=== PATIENT | female | born 1980 | race African-American/Black ===

== ENCOUNTER 2017-06-29 10:10 | Emergency (ER) | payer SELFPAY ==
[~2017-06-29] VITALS: Ht 165.1 cm; Wt 67.0 kg
[~2017-06-29 10:10] MED LIST: METH750T2 PO; TRAM50 PO
[2017-06-29 10:29] VITALS: BP 120/77; PULSE 99; RESP 17; TEMP 99.1; O2SAT 100
--- NOTE | 2017-06-29 12:13 | RADRPT ---
EXAM DATE/TIME: 06/29/2017 11:51 [place] COMPARISON: No previous studies available for comparison. INDICATIONS : Left leg swelling. MEDICAL HISTORY : Left leg swelling. Tobacco use. SURGICAL HISTORY : None. ENCOUNTER: Initial ACUITY: 1 day PAIN SCORE: 2/10 LOCATION: Left leg. TECHNIQUE: Venous ultrasound of the leg was performed from the inguinal ligament to the proximal calf. Real-hafsa e, color Doppler and spectral tracing, compression and augmentation techniques were used. FINDINGS: There is normal compressibility of the deep venous system from the inguinal region to the proximal ca lf. No echogenic clot is seen in the lumen of the common femoral, femoral, popliteal, and posterior tibial veins. There is a normal response of the venous system to proximal and distal augmentation an d respiration. CONCLUSION: No evidence of DVT. Brendan Benítez MD on June 29, 2017 at 12:11 Board Certified Radiologist. This report was verified electronically.
--- NOTE | 2017-06-29 12:53 | PD ---
HPI Chief Complaint: Edema Time Seen by Provider: 12:53 Travel History International Travel<30 days: No Contact w/Intl Traveler<30days: No Traveled to known affect area: No History of Present Illness HPI 37-year-old F [place] female presents emergency department with notable swelling in the left lower leg which she felt was somewhat tender. She is concerned about possible DVT. She denies fever, chills, shortness of breath, or chest pain. She does work nights and she worked last night 11-6. He works as a [employer] where she is on her feet most of the evening. Patient has no history of blood clots in the past. Pain is minimal at 4 out of 10. She has no known drug allergies. PFSH Past Medical History Diminished Hearing: No ?: Not LMP: 06/2017 Social History Alcohol Use: No Tobacco Use: Yes (04/16 PPD) Substance Use: No Allergies-Medications (Allergen,Severity, Reaction): Coded Allergies: No Known Allergies (Verified Adverse Reaction, Unknown, 06/29/17) Reported Meds & Prescriptions Reported Meds & Active Scripts Active Robaxin (Methocarbamol) 750 Mg Tab 750 Mg PO Q8 PRN Ultram (Tramadol HCl) 50 Mg Tab 50 Mg PO Q6H PRN FOR PAIN Review of Systems Except as stated in HPI: all other systems reviewed are Neg General / Constitutional: No: Fever Eyes: No: Visual changes HENT: No: Headaches Cardiovascular: No: Chest Pain or Discomfort Respiratory: No: Shortness of Breath Gastrointestinal: No: Abdominal Pain Genitourinary: No: Dysuria Musculoskeletal: Positive: Edema (Mild left-sided lower extremity), Pain (4 out of 10 left lower extremity), No: Myalgias, Arthralgias, Limited ROM Skin: No Rash Neurologic: No: Weakness Psychiatric: No: Depression Endocrine: No: Polydipsia Hematologic/Lymphatic: No: Easy Bruising Physical Exam Narrative GENERAL: Patient appears in no acute distress per SKIN: Warm and dry. Normal color. Normal turgor. No erythema. HEAD: Atraumatic. Normocephalic. EYES: Pupils equal and round. No scleral icterus. No injection or drainage. ENT: No nasal bleeding or discharge. Mucous membranes pink and moist. Pharynx is clear. Airways patent. NECK: Trachea midline. Supple nontender. CARDIOVASCULAR: Regular rate and rhythm. No murmurs gallops or rubs. RESPIRATORY: No accessory muscle use. Clear to auscultation. Breath sounds equal bilaterally. GASTROINTESTINAL: Abdomen soft, non-tender, nondistended. Hepatic and splenic margins not palpable. MUSCULOSKELETAL: Extremities without clubbing, cyanosis, or 1+ at best nonpitting edema in the left lower calf. No obvious deformities. Negative Homans sign. No significant increased pain with palpation. NEUROLOGICAL: Awake and alert. No obvious cranial nerve deficits. Motor grossly within normal limits. Five out of 5 muscle strength in the arms and legs. Normal speech. PSYCHIATRIC: Appropriate mood and affect; insight and judgment normal. Data Data Last Documented VS Vital Signs Date Time Temp Pulse Resp B/P (MAP) Pulse Ox O2 Delivery O2 Flow Rate FiO2 06/29/17 10:29 99.1 99 17 120/77 (91) 100 Orders Orders Us Leg Venous Doppler (06/29/17 ) [facility] Medical Decision Making Medical Screen Exam Complete: Yes Emergency Medical Condition: Yes Differential Diagnosis Left lower leg pain. Left lower leg swelling. Possible DVT. Narrative Course Ultrasound ordered in triage of the left lower extremity shows no signs of DVT. Further workup was not deemed necessary at this time. Recommend patient watch her salt intake, and perhaps wears supportive stockings while working. Patient can return if symptoms worsen as needed. Diagnosis Primary Impression: Pain in left lower leg Referrals: Primary Care Physician Patient Instructions: 2 Gram Sodium Diet (DC), General Instructions Additional Instructions: Ultrasound ordered in triage of the left lower extremity shows no signs of DVT. Further workup was not deemed necessary at this time. Recommend patient watch her salt intake, and perhaps wears supportive stockings while working. Patient can return if symptoms worsen as needed. Med/Other Pt SpecificInfo: No Meds Exist/No RX given Disposition: 01 DISCHARGE HOME Condition: Stable Robert Mendez Jun 29, 2017 12:53
== END 2017-06-29 13:19 | disposition home or self-care (01) ==
LOC: NEPD 10:10
DX: M79.662 Pain in left lower leg (principal); F17.200 Nicotine dependence, unspecified, uncomplicated
CPT/HCPCS: 93971; 99284